=== PATIENT | male | born 1940 | race Hispanic/Latino ===

== ENCOUNTER 2017-08-05 09:39 | Emergency (ER) | payer BC, MEDICARE ==
[2017-08-05 09:39] VITALS: BMI 28.8
--- NOTE | 2017-08-05 10:50 | ED PDOC ---
Arrival/HPI - General Chief Complaint: Lower Extremity Problem/Injury Time Seen by Provider: 08/05/17 10:14 Historian: Patient - History of Present Illness Narrative History of Present Illness (Text): 08/05/17 10:35 77 year old male,whose past medical history includes CAD, cervical disc surgeries, chronic pain syndrome, CABG, and depression, presents to the emergency department complaining of right groin/hip pain for approximately 8 days, however patient states the pain actually began nearly 2 weeks ago. Patient received a hip injection by a pain specialist approximately 2 weeks ago as well and felt relief for the following 2 days. Patient states the pain came back and progressively worsened for the past 8 days. Movement, weight baring, walking, and changing positions causes severe pain. Currently pain is rated 10/ 10 primarily to the right groin that shoots to the right hip and at times to the right lower back. Patient denies any fever/chills/sweats, chest pain/ shortness of breath/palpitations, abdominal pain/nausea/vomiting, rectal or penile numbness/tingling, no incontinence/urination and bowel, fall/trauma/sick contact/travel, or any other complaints. PMD: Dr. Tsering Truong Time/Duration: Other (8 days ) Symptom Onset: Gradual Symptom Course: Worsening Severity Level: 10 Activities at Onset: Other (with movement) Context: Home Past Medical History - Provider Review Nursing Documentation Reviewed: Yes - Travel History Have you recently traveled outside [place] w/in the past 3 mons?: No - Past History Past History: No Previous - Infectious Disease Hx of Infectious Diseases: None - Tetanus Immunization Tetanus Immunization: Unknown - Cardiac Hx Cardiac Disorders: Yes Other/Comment: triple bypass 2 1/2 years ago - Pulmonary Hx Respiratory Disorders: No - Neurological Hx Neurological Disorder: No - HEENT Hx HEENT Disorder: No - Renal Hx Renal Disorder: No - Endocrine/Metabolic Hx Endocrine Disorders: No - Hematological/Oncological Hx Blood Disorders: No - Integumentary Hx Dermatological Disorder: No - Musculoskeletal/Rheumatological Hx Musculoskeletal Disorders: Yes Hx Back Pain: Yes (chronic left sided neck pain) Hx Falls: No Other/Comment: pt. had 2 cervical fusions with hardware - Gastrointestinal Hx Gastrointestinal Disorders: No - Genitourinary/Gynecological Hx Genitourinary Disorders: No - Psychiatric Hx Psychophysiologic Disorder: Yes Hx Anxiety: Yes Hx Depression: Yes (chronic mild depression) Hx Substance Use: No - Surgical History Hx Cardiac Catheterization: Yes Hx Musculoskeletal Surgery: Yes (2 cervical fusions with hardware) Hx Open Heart Surgery: Yes (triple bypass) - Anesthesia Hx Anesthesia: Yes Hx Anesthesia Reactions: Yes Hx Malignant Hyperthermia: No - Suicidal Assessment Feels Threatened In Home Enviroment: No Family/Social History - Physician Review Nursing Documentation Reviewed: Yes Family/Social History: No Known Family HX Smoking Status: Never Smoked Hx Alcohol Use: No Hx Substance Use: No Hx Substance Use Treatment: No Allergies/Home Meds Allergies/Adverse Reactions: Allergies No Known Allergies Allergy (Verified 09/04/14 17:12) Home Medications: Home Meds Medication Instructions Recorded Confirmed Alprazolam [Xanax] 1 mg PO TID PRN 06/07/12 09/04/14 Fluoxetine Hydrochloride [Prozac] 20 mg PO QAM 06/07/12 09/04/14 Mirtazapine [Remeron] 45 mg PO HS 06/07/12 09/04/14 Oxycodone HCl [Oxycontin] 10 mg PO Q12H PRN 06/07/12 09/04/14 Metoprolol Tartrate 50 mg PO DAILY 06/08/12 09/04/14 Simvastatin 40 mg PO ACD 06/08/12 09/04/14 Review of Systems - Physician Review All systems were reviewed & negative as marked: Yes - Review of Systems Constitutional: absent: Fevers, Night Sweats, Other (Chills) Eyes: Normal ENT: Normal Respiratory: absent: SOB Cardiovascular: absent: Chest Pain, Palpitations Gastrointestinal: absent: Abdominal Pain, Diarrhea, Nausea, Vomiting, Other ( incontinence/urination and bowel) Genitourinary Male: Normal Musculoskeletal: Other (Pain to the right groin that shoots to the right hip and at times to the right lower back. ) Skin: Normal Neurological: Normal Endocrine: Normal Hemo/Lymphatic: Normal Physical Exam - Physical Exam Narrative Physical Exam (Text): General: alert/awake, GCS = 15, oriented x 3, resting in bed, uncomfortable, cooperative, interactive; NAD Head: NC/AT EYE: PERRLA, EOMI, sclera anicteric, no nystagmus, no photophobia; visual field intact b/l Facial: WNL Oral: uvula/tongue are midline, no exudate/lesions, no drooling/stridor, no dysphonia; intact dentitions NECK: intact ROM, no midline tenderness, no nuchal rigidity, no meningeal signs ; no step off Chest: CTA b/l, no w/r/r; no tachypenia, no accessory muscle use noted Cardiac: +S1, +S2, no m/r/r Abdominal: +BS, soft/nd/nt, well nourished patient; no masses/rebound/guarding/ rigidity; no mcbride's sign, no mcburney's point tenderness Ext: Decr ROM to right hip due to pain, no external/internal rotation and/or shortening noted; no gross deformities noted; intact ROM to rest of the limbs, strength 5/5 grossly intact in all limbs, neurovasc intact b/l; no josie's sign b/l, no pitting edema noted b/l; ambulatory but favors right leg; +2/2 reflex at the knee noted b/l SKIN: cap refill < 1 sec, no ulcerations, no petechiae, no rashes; no pallor NEURO: CNII-XII WNL, no facial asymmetries, no slurr speech, oriented x 3 NIH stroke scale ~ 0 Psych: normal insight, normal affect Vital Signs Reviewed: Yes Vital Signs Temp Pulse Resp BP Pulse Ox 08/05/17 15:33 97.8 F 65 20 98 08/05/17 15:22 97.8 F 62 17 106/59 L 97 08/05/17 13:30 66 18 118/68 98 08/05/17 11:00 64 18 116/64 98 08/05/17 09:58 98 F 63 18 118/66 96 Temperature: Afebrile Blood Pressure: Normal Pulse: Regular Respiratory Rate: Normal Appearance: Positive for: Well-Appearing, Non-Toxic, Uncomfortable Pain Distress: None Mental Status: Positive for: Alert and Oriented X 3 Medical Decision Making ED Course and Treatment: 08/05/17 10:40 Impression: right leg/groin/hip pain, atrumatic 77 year old male presents complaining of right groin hip pain for approximately 8 days. I have considered all differential diagnoses regarding patients chief medical complaints/clinical findings which include but are not limited to: right hip/ groin pain, r/o fx (unlikely); unlikely DVT; likely arthritic/joint disorder Plan: -- EKG -- Labs -- Toradol -- Hip Min 2V W/ Pelvis X-ray -- Urinalysis -- Reassess and disposition Progress Notes: Dr Jazzmine Truong is at bedside, evaluated patient, agrees with Emergency department mgt/txt, would like to consult Dr Fulton; will continue to monitor 08/05/17 13:[address] Fulton who is aware and agrees with the Emergency department txt plan. Requests a CT order and states he will be coming into the emergency department to evaluate patient. 08/05/17 14:44 Dr. Fulton at bed side and evaluating the patient. Recommends patient can follow up as out-patient, with over the counter Tylenol or Aleve for pain control, and with out-patient follow up for medical rehabilitation; also recommend patient no excessive walking/ambulating 08/05/17 14:53 Dr. Truong aware and agrees with the recommendation. Patient can be discharged home with outpt follow up 08/05/17 15:12 On re-evaluation, patient feels better and is in no acute distress. I have discussed the results and plan with the patient, who expresses understanding. Patient is also aware of Dr. Fulton's recommendation. Patient is in agreement with the plan to be discharged home. Patient is stable for discharge. Patient was instructed to follow up with physician or return if symptoms worsen or new concerning symptoms arise. Re-evaluation Time: 15:15 Reassessment Condition: Improving,but remains with symptoms - Lab Interpretations Lab Results: 08/05/17 12:38 08/05/17 12:38 Lab Results 08/05/17 12:38: Sodium 145, Potassium 5.0, Chloride 105, Carbon Dioxide 31, Anion Gap 14, BUN 21, Creatinine 0.9, Est GFR ( Amer) > 60, Est GFR (Non- Af Amer) > 60, Random Glucose 98, Calcium 9.6, Total Bilirubin 0.6, AST 32, ALT 41, Alkaline Phosphatase 53, Total Protein 6.8, Albumin 4.1, Globulin 2.7, Albumin/Globulin Ratio 1.5 08/05/17 12:38: WBC 6.9, RBC 4.81, Hgb 15.8, Hct 46.2, MCV 96.0, MCH 32.8, MCHC 34.2, RDW 14.4, Plt Count 144, MPV 10.5, Gran % 59.1, Lymph % (Auto) 29.8, Hawkins % (Auto) 9.3 H, Eos % (Auto) 1.5, Baso % (Auto) 0.3, Gran # 4.05, Lymph # (Auto ) 2.0, Hawkins # (Auto) 0.6, Eos # (Auto) 0.1, Baso # (Auto) 0.02, ESR 3 08/05/17 11:48: Urine Color Yellow, Urine Appearance Clear, Urine pH 6.5, Ur Specific [place] 1.010, Urine Protein Negative, Urine Glucose (UA) Negative, Urine Ketones Negative, Urine Blood Negative, Urine Nitrate Negative, Urine Bilirubin Negative, Urine Urobilinogen 0.2, Ur Leukocyte Esterase Small H, Urine RBC 0 - 2, Urine WBC 5 - 10, Ur Epithelial Cells None, Urine Bacteria Mod I have reviewed the lab results: Yes Interpretation: All labs normal - RAD Interpretation Narrative RAD Interpretations (Text): PROCEDURE: Right Hip and pelvis Radiographs. Dictator : Gurdeep Chaparro MD Report Date : 08/05/2017 12:30:15 IMPRESSION: Normal radiographs of right hip PROCEDURE: CT of the right hip Dictator : Gurdeep Chaparro MD Report Date : 08/05/2017 14:40:4 IMPRESSION: No evidence of fracture Radiology Orders: 08/05/17 10:30 HIP MIN 2V W/ PELVIS RT [RAD] Stat 08/05/17 14:01 EXT LOWER W/O CONTRAST RIGHT [CT] Stat [employer] Equipment Operator: Radiologist - EKG Interpretation EKG Interpretation (Text): 08/05/17 16:58 Sinus jamal at 55 bpm, normal axis, no ectopy, qs in leads III/F, no st-t changes, ABNL EKG; unchanged compare with old ekg 08/2014 Interpreted by ED Physician: Yes Type: 12 lead EKG Comparison: Similar to previous EKG - Medication Orders Current Medication Orders: Discontinued Medications Ketorolac Tromethamine (Toradol) 30 mg IVP STAT STA Stop: 08/05/17 10:29 Last Admin: 08/05/17 12:40 Dose: 30 mg MAR Pain Assessment Document 08/05/17 12:40 CAST (Rec: 08/05/17 12:40 [facility] [id number]) Pain Reassessment Is this a pain reassessment? No Sleep Is patient sleeping during reassessment? No Presence of Pain Presence of Pain Yes Pain Scale Used Pain Scale Used Numeric Location Left, Right or Bilateral Right Pain Location Body Site Leg Description Description Constant Intensity of Pain at present 5 Pain Behavior Facial Grimacing Aggravating Factors Changing Position Alleviating Factors/Management Position Change Techniques Alleviating Factors Medication IVP Administration Document 08/05/17 12:40 CAST (Rec: 08/05/17 12:40 [facility] [id number]) Charges for Administration # of IVP Administrations 1 - Scribe Statement The provider has reviewed the documentation as recorded by the Krystyna Porras Provider Scribe Attestation: All medical record entries made by the Krystyna were at my direction and personally dictated by me. I have reviewed the chart and agree that the record accurately reflects my personal performance of the history, physical exam, medical decision making, and the department course for this patient. I have also personally directed, reviewed, and agree with the discharge instructions and disposition. Disposition/Present on Arrival - Present on Arrival Any Indicators Present on Arrival: No History of DVT/PE: No History of Uncontrolled Diabetes: No Urinary Catheter: No History of Decub. Ulcer: No History Surgical Site Infection Following: None - Disposition Have Diagnosis and Disposition been Completed?: Yes Diagnosis: Right hip pain, Arthritis Disposition: HOME/ ROUTINE Disposition Time: 15:30 Patient Plan: Discharge Condition: STABLE Discharge Instructions (ExitCare): Osteoarthritis, Arthritis and Exercise, Hip Pain in Older People, Hip Pain Print Language: GERMAN Additional Instructions: Make sure to see your doctor in 1-2 days DRINK PLENTY OF FLUIDS AVOID prolonged standing/walking walk with a cane take your medications as prescribed RETURN TO ED IF worse pain, cant breath, persistent vomiting, high fever >101- 102 for hours, altered behavior, slurr speech, facial changes, focal weakness ( arm/leg or both), unable to urinate, heavy/persistent bleeding, passing out, chest pain, or other medical emergencies Referrals: Tsering Truong MD [Primary Care Provider] - Follow up with primary Gurdeep Fulton DO [Staff Provider] - Follow up with primary Forms: [employer] (Hungarian)
[2017-08-05] MEDS ORDERED: Dextrose 50% SYRINGE Inj (50 ml) ONE (10:52)
[2017-08-05 12:05] LABS: PH,URINE 6.5 (4.7-8.0); URINE BILIRUBIN NEGATIVE (NEGATIVE); URINE BLOOD NEGATIVE (NEGATIVE); URINE GLUCOSE (UA) NEGATIVE (NEGATIVE); URINE LEUKOCYTE ESTERASE SMALL Leu/uL (NEGATIVE); URINE PROTEIN NEGATIVE mg/dL (<30 mg/dL); URINE UROBILINOGEN 0.2 E.U./dL (<1 E.U./dL)
[2017-08-05 12:15] LABS: URINE APPEARANCE CLEAR (CLEAR); URINE COLOR YELLOW (YELLOW)
[2017-08-05 12:25] LABS: URINE BACTERIA MOD (NEG); URINE RBC 0 - 2 /hpf (0-2)
--- NOTE | 2017-08-05 12:32 | RAD ---
PROCEDURE: Right Hip and pelvis Radiographs. HISTORY: atrumatic right hip pain COMPARISON: None. FINDINGS: BONES: Normal. No fracture. JOINTS: Normal. SOFT TISSUES: Normal. OTHER FINDINGS: None. IMPRESSION: Normal radiographs of right hip.
[2017-08-05 12:49] LABS: BASO # 0.02 K/mm3 (0.0-2.0); BASO % 0.3 % (0.0-3.0); EOS # 0.1 (0.0-0.7); EOS % 1.5 % (1.5-5.0); GRAN # 4.05 (1.4-6.5); GRAN % 59.1 % (50.0-68.0); HEMOGLOBIN 15.8 g/dL (14.0-18.0); LYMPH % 29.8 % (22.0-35.0); MEAN CORPUSCULAR HEMOGLOBIN 32.8 pg (25.0-35.0); MEAN CORPUSCULAR HGB CONC 34.2 g/dl (31.0-37.0); MEAN PLATELET VOLUME 10.5 fl (7.0-11.0); MONO # 0.6 (0.1-0.6); MONO % 9.3 % (1.0-6.0); RBC 4.81 10^6/uL (3.5-6.1); RED CELL DISTRIBUTION WIDTH 14.4 % (11.5-14.5); WHITE BLOOD COUNT 6.9 10^3/ul (4.5-11.0)
[2017-08-05 12:57] LABS: ALB/GLOB RATIO 1.5 (1.1-1.8); ALBUMIN 4.1 g/dL (3.0-4.8); ALT/SGPT 41 U/L (7-56); AST/SGOT 32 U/L (17-59); BLOOD UREA NITROGEN 21 mg/dL (7-21); CALCIUM 9.6 mg/dL (8.4-10.5); GFR AFRICAN-AMERICAN > 60; GFR NON-AFRICAN AMERICAN > 60
--- NOTE | 2017-08-05 14:42 | CT ---
PROCEDURE: CT of the right hip HISTORY: right hip pain, please obtain pelvis/right hip COMPARISON: TECHNIQUE: CT of the right hip was performed in the axial plane with sagittal and coronal reconstructions. FINDINGS: There is no evidence of fracture. There is mild joint space narrowing superiorly. There are some calcifications in the hip capsule. These are of doubtful significance. There is no soft tissue abnormality. IMPRESSION: No evidence of fracture
[2017-08-05 15:23] VITALS: BP 106/59; TEMP 97.8
[2017-08-05 15:33] VITALS: PULSE 65; RESP 20; O2SAT 98
--- NOTE | 2017-08-05 21:45 | CARD ---
APPROVED REPORT EKG Measurement Heart [id number] <Conclusion> Sinus bradycardia Otherwise normal ECG
--- NOTE | 2017-08-06 07:30 | CON ---
DATE: 08/05/2017 ORTHOPEDIC CONSULTATION REQUESTING PHYSICIAN: Tsering Truong MD. HISTORY OF PRESENT ILLNESS: Patient is a 77-year-old male with couple of weeks' history of right hip pain. X-ray showed pericapsular calcification of the right hip with osteophytes of the superior and inferior acetabulum and decreased joint space superiorly and inferiorly where he considered to have mild osteoarthritis of the right hip, not on the left hip and he has tenderness to the groin area with decreased internal rotation of that right hip, but there is no evidence of a fracture on the plain x-rays or the CAT scan. He ambulates on it without too much pain except when he has to twist the leg in internal rotation, causes increased pain from arthritic right hip joint. There is no suggestion of a fracture or stress fracture. So, I told him to decrease some of his physical exercise; he does a lot of playing golf without the golf cart and it is hard on the hip when he does the treadmill and too much walking. I told him to slow down, take some antiinflammatory medicines. If he continues to hurt, we can always get an MRI in a couple of weeks. FINAL DIAGNOSES: Mild osteoarthritis, right hip, with periarticular calcification suggesting mild osteoarthritis with restricted range of motion of the right hip and we will follow him if he needs to see me in a couple of weeks. Gurdeep Fulton DO WILLIE
== END 2017-08-05 15:36 | disposition home or self-care (01) ==
LOC: ED 09:39
DX: M25.551 Pain in right hip (principal); M16.11 Unilateral primary osteoarthritis, right hip; I25.10 Atherosclerotic heart disease of native coronary artery without angina pectoris; Z95.1 Presence of aortocoronary bypass graft
CPT/HCPCS: 73502; 73700; 80053; 81001; 85025; 85651; 87086; 93005; 96374; 99283; J1885